=== PATIENT | female | born 1970 | race Caucasian/White ===

== ENCOUNTER 2017-09-25 18:47 | Emergency (ER) | payer BC ==
[~2017-09-25 18:47] MED LIST: Acetaminophen/HYDROcodone 325-5 MG Tab PO ONE; Amoxicillin/Clavulanate K 875-125 MG Tab PO ONE; Ibuprofen 800 MG Tab PO ONE
[2017-09-25] MEDS ORDERED: Acetaminophen/HYDROcodone 325-5 MG Tab PO ONE (19:01)
[2017-09-25] MEDS ORDERED: Ibuprofen 600 MG Tab PO ONE (19:01)
[2017-09-25] MEDS ORDERED: Amoxicillin/Clavulanate K 875-125 MG Tab PO ONE (19:02)
--- NOTE | 2017-09-25 19:03 | EDM.PDOC ---
ED HPI GENERAL MEDICAL PROBLEM - General Chief Complaint: ENT Problem Stated Complaint: TOOTH PAIN Time Seen by Provider: 09/25/17 18:47 Source of Information: Reports: Patient, Family History Limitations: Reports: No Limitations - History of Present Illness INITIAL COMMENTS - FREE TEXT/NARRATIVE: 46 o.w.f, healthy, came to the ed with her SO due to right upper tooth aches Tooth #1 to 6. No trauma, pt does not smoke or drink. Pt took Alive without help. No N/V/D or other acute medical issues. BP 134/85 Temp 35.8 Pulse ox 100% Pulse 72 Onset Date: 09/25/17 Onset Time: 06:00 Duration: Hour(s): Location: Reports: Face Quality: Reports: Ache, Burning, Dull Severity: Moderate Improves with: Reports: Cold Therapy Worsens with: Reports: Movement Context: Reports: Other (toothache.) Associated Symptoms: Reports: No Other Symptoms Treatments [employer]: Reports: Acetaminophen, NSAIDS tooth Pain Score (Numeric/FACES): 9 - Related Data Allergies Allergy/AdvReac Type Severity Reaction Status Date / Time No Known Allergies Allergy Verified 09/25/17 18:55 Home Meds: Home Meds Acetaminophen/HYDROcodone [Mansura 325-5 MG] 1 - 2 tab PO Q6H PRN #4 tab 09/25/17 [Rx] Escitalopram Oxalate [Lexapro] 5 mg PO DAILY 09/25/17 [History] Past Medical History Psychiatric History: Reports: Depression Social & Family History - Family History Family Medical History: Noncontributory ED ROS ENT - Review of Systems Review Of Systems: See Below Constitutional: Reports: No Symptoms HEENT: Reports: Dental Pain Respiratory: Reports: No Symptoms Cardiovascular: Reports: No Symptoms Endocrine: Reports: No Symptoms GI/Abdominal: Reports: No Symptoms : Reports: No Symptoms Musculoskeletal: Reports: No Symptoms Skin: Reports: No Symptoms Neurological: Reports: No Symptoms Psychiatric: Reports: No Symptoms Hematologic/Lymphatic: Reports: No Symptoms Immunologic: Reports: No Symptoms ED EXAM, ENT - Physical Exam Exam: See Below Exam Limited By: No Limitations General Appearance: Alert, WD/WN, Mild Distress Eye Exam: Bilateral Eye: Normal Inspection Ears: Normal External Exam Nose: Normal Inspection, Normal Mucousa Mouth/Throat: Normal Inspection, Normal Gums, Normal Lips, Normal Oropharynx, Normal Teeth (no obvious tooth pathology) Head: Atraumatic, Normocephalic Neck: Normal Inspection, Supple, Non-Tender, Full Range of Motion Respiratory/Chest: No Respiratory Distress Cardiovascular: Normal Peripheral Pulses, Regular Rate, Rhythm, No Edema, No Gallop, No JVD, No Murmur, No Rub GI/Abdominal: Normal Bowel Sounds, Soft, Non-Tender, No Organomegaly, No Distention (Female) Exam: Deferred Rectal (Female) Exam: Deferred Back: Normal Inspection, Full Range of Motion Extremities: Normal Inspection, Normal Range of Motion Neurological: Alert, Oriented, CN II-XII Intact, Normal Cognition, Normal Gait, No Motor/Sensory Deficits Psychiatric: Normal Affect, Normal Mood Skin: Warm, Dry, Intact, Normal Color, No Rash Lymphatic: No Adenopathy Course - Vital Signs Text/Narrative:: 46 o.w.f, healthy, came to the ed with her SO due to right upper tooth aches Tooth #1 to 6. No trauma, pt does not smoke or drink. Pt took Alive without help. No N/V/D or other acute medical issues. BP 134/85 Temp 35.8 Pulse ox 100% Pulse 72 PE: WnWd w f NAD no obvious dental pathology. However, pt says she has severe dental and gum pain. Impression: Gingivitis, toothache Tx: Erin Jo and Mansura Reexam: Improved Plan: D/C with instructions Last Recorded V/S: Last Vital Signs Temp 35.8 C 09/25/17 18:55 Pulse 72 09/25/17 18:55 Resp 17 09/25/17 18:55 BP 134/85 09/25/17 18:55 Pulse Ox 100 09/25/17 18:55 - Orders/Labs/Meds Meds: Medications Discontinued Medications Generic Name Dose Route Start Last Admin Trade Name Freq PRN Reason Stop Dose Admin Hydrocodone Bitart/Acetaminophen 1 tab 09/25/17 19:01 09/25/17 19:10 Mansura 325-5 Mg PO 09/25/17 19:02 1 tab ONETIME ONE Administration Amoxicillin/Clavulanate Potassium 1 tab 09/25/17 19:02 09/25/17 19:10 Augmentin 875 Mg/125 Mg PO 09/25/17 19:03 1 tab ONETIME ONE Administration Ibuprofen 600 mg 09/25/17 19:01 09/25/17 19:10 Motrin PO 09/25/17 19:02 600 mg ONETIME ONE Administration Departure - Departure Time of Disposition: 19:15 Disposition: Home, Self-Care 01 Condition: Good Clinical Impression: Tooth ache, Gum symptoms - Discharge Information Prescriptions: Acetaminophen/HYDROcodone [Mansura 325-5 MG] 1 - 2 tab PO Q6H PRN #4 tab PRN Reason: severe pain only Instructions: Dental Care and Dentist Visits Referrals: PCP,None [Primary Care Provider] - Forms: ED Department Discharge Additional Instructions: Please f/u with a dentist a.s.a.p, please take the meds as recommended, please come back if your symptoms get worse acutely
== END 2017-09-25 19:30 | disposition home or self-care (01) ==
LOC: FB.ED 18:47
DX: K05.10 Chronic gingivitis, plaque induced (principal); K08.89 Other specified disorders of teeth and supporting structures
CPT/HCPCS: 99282; A9270